=== PATIENT | male | born 1955 | race Caucasian/White ===

== ENCOUNTER 2017-05-02 09:08 | Day surgery (SDC) | payer OTHER ==
[2017-05-02] MEDS ORDERED: Midazolam 2 MG/2 ML VIAL ONE (11:16)
[2017-05-02] MEDS ORDERED: Propofol 10 mg/ml Inj (20 ML) ONE (11:16)
[2017-05-02] MEDS ORDERED: Lactated Ringer's 1,000 ML IV ONE (11:21)
[2017-05-02] MEDS ORDERED: Lactated Ringer's 500 ML IV SCH (12:00)
[2017-05-02 13:00] VITALS: O2SAT 100
[2017-05-02 13:39] VITALS: BP 108/66; PULSE 65; RESP 13; TEMP 97.4
== END 2017-05-02 13:35 | disposition home or self-care (01) ==
LOC: C.ENDO 09:08
PROVIDERS: ATTEND Internal Medicine Gastroenterology
DX: K59.00 Constipation, unspecified (principal); K64.8 Other hemorrhoids; K57.30 Diverticulosis of large intestine without perforation or abscess without bleeding; D12.5 Benign neoplasm of sigmoid colon; D12.4 Benign neoplasm of descending colon; D12.2 Benign neoplasm of ascending colon; Z79.899 Other long term (current) drug therapy
CPT/HCPCS: 45380; 45385; 88305; J2250; J2704; J7120